=== PATIENT | female | born 2000 | race Caucasian/White ===

== ENCOUNTER 2025-08-07 01:01 | Emergency (ER) | payer BC, OTHER ==
[~2025-08-07] VITALS: Ht 154.9 cm; Wt 74.3 kg
[2025-08-07 01:06] VITALS: BP 97/70; PULSE 78; RESP 20; TEMP 97; O2SAT 97
[2025-08-07] MEDS ORDERED: KETOROLAC TROMETH 30 MG/ML 1ML VIAL IM ONE (01:30)
--- NOTE | 2025-08-07 01:34 | ED.PDOC ---
History of Present Illness HPI Comments This is a 24-year-old female with eczema who presented to the ER for the evaluation of hand pain status post mechanical fall. Patient was running in her backyard late night earlier today when she experienced a mechanical fall and she tripped, landed on her hands, her hands were outstretched and since then she has been complaining of right and pain especially on the base of the right thumb. She denies hitting her head or losing consciousness. She denies any wound open or closed. Active and passive range of motion are intact. Patient seen and examined in ER. Slight swelling and tenderness at the thumb on the right side, no redness, no open wounds, range of motion is intact, intact g rip strength. Chief Complaint: Upper Extremity Time Seen by MD: 01:13 Allergies: Coded Allergies: No Known Drug Allergy (Verified Allergy, Unknown, 08/07/25) Information Source: Patient Mode of Arrival: Ambulatory Past Medical History PAST MEDICAL HISTORY: Denies Past Medical History (Other): Eczema Surgical History: Denies all surgeries WEED CONTROLLER History: No Pertinent WEED CONTROLLER History Constitutional: denies: chills, diaphoresis, fatigue, fever, malaise, sweats, weakness, others EENTM: denies: blurred vision, double vision, ear bleeding, ear discharge, ear drainage, ear pain, ear ringing, eye pain, eye redness, hearing loss, mouth pain , mouth swelling, nasal discharge, nose bleeding, nose congestion, nose pain, photophobia, tearing, throat pain, throat swelling, voice changes, others Respiratory: denies: cough, hemoptysis, orthopnea, SOB at rest, shortness of breath, SOB with excertion, stridor, wheezing, others Cardiovascular: denies: chest pain, dizzy spells, diaphoresis, Dyspnea on exertion, edema, irregular heart beat, left arm pain, lightheadedness, palpitations, PND, syncope, others Gastrointestinal: denies: abdomen distended, abdominal pain, blood streaked bowels, constipated, diarrhea, dysphagia, difficulty swallowing, hematemesis, melena, nausea, poor appetite, poor fluid intake, rectal bleeding, rectal pain, vomiting, others Genitourinary: denies: abnormal vagina bleeding, burning, dyspareunia, dysuria, flank pain, frequency, hematuria, incontinence, pain, , vagina discharge, urgency, others Neurological: denies: dizziness, fainting, headache, left sided numbness, left sided weakness, numbness, paresthesia, pre-existing deficit, right sided numbness, right sided weakness, seizure, speech problems, tingling, tremors, weakness, others Musculoskeletal: reports: others (Right hand pain) Integumetry: denies: bruises, change in color, change in hair/nails, dryness, laceration, lesions, lumps, rash, wounds, others Allergic/Immunocompromised: denies: Difficulty Healing, Frequent Infections, Hives, Itching, others Hematologic/Lymphatic: denies: anemia, blood clots, easy bleeding, easy bruising, swollen glands, others Endocrine: denies: excessive hunger, excessive sweating, excessive thirst, excessive urination, flushing, intolerance to cold, intolerance to heat, unexplained weight gain, unexplained weight loss, others Psychiatric: denies: anxiety, bipolar disorder, depression, hopeless, panic disorder, schizophrenia, sleepless, suicidal, others Physical Exam General Appearance: No Apparent Distress, Normal HEENT: Normal ENT Inspection, Pharynx Normal, TMs Normal Neck: Full Range of Motion, Non-Tender, Normal, Normal Inspection Respiratory: Chest Non-Tender, Lungs Clear, No Accessory Muscle Use, No Respiratory Distress, Normal Breath Sounds Cardiovascular: No Edema, No JVD, No Murmur, No Gallop, Normal Peripheral Pulses, Regular Rate/Rhythm Breast Exam: Deferred Gastrointestinal: No Organomegaly, Non Tender, No Pulsatile Mass, Normal Bowel Sounds, Soft Genitalia: Deferred Pelvic: Deferred Rectal: Deferred Extremities: No calf tenderness, Normal capillary refill, Normal inspection, Normal range of motion, Non-tender, No pedal edema, Tender, Other (Base of the right thumb has tenderness) Musculoskeletal : Apperance: Normal Neurologic: Alert, digital account coordinator II-XII nml as Tested, No Motor Deficits, Normal Affect, Normal Mood, No Sensory Deficits Cerebellar Function: Normal Reflexes: Normal Skin: Dry, Normal Color, Warm Lymphatic: No Adenopathy Was a procedure done? Was a procedure done?: No Differential Dx Considerations may include: Scaphoid fracture/foosh injury/cellulitis/lunate fracture X-Ray, Labs, Meds, VS Vital Signs Date Time Temp Pulse Resp B/P (MAP) Pulse Ox O2 Delivery O2 Flow Rate FiO2 9/25/25 01:06 97.0 78 20 97/70 97 97.0 Time of 1ST Reevaluation: 02:00 Reevaluation 1ST: Resolved Patient Education/Counseling: Diagnosis, Treatment, Need For Follow Up Family Education/Counseling: No Family Present SEPSIS Sepsis Screen Date sepsis recognized/suspect: Aug 07, 2025 Time Sepsis recognized/suspect: 0108 Recent Procedure: No On Antibiotic Therapy: No Respiratory Rate >20: No Heart Rate >90: No Temp<36 C (96.8 F) or >38.3 C: No SBP <90 or MAP <65 mmHG: No New Acute Mental Status Change: No Is the patient on CPAP, BIPAP,: No Physician Orders R Wrist 3+ View Xray (08/07/25 01:26) Ice/Cold Pack (08/07/25 ) R Hand 3 View Xray (08/07/25 01:38) Vital Signs Date Time Temp Pulse Resp B/P (MAP) Pulse Ox O2 Delivery O2 Flow Rate FiO2 08/07/25 01:06 97.0 78 20 97/70 97 97.0 Departure 1 Departure Time of Disposition: 02:29 Impression: Primary Impression: Accident due to mechanical fall without injury Additional Impression: Hand trauma Disposition: 01 HOME / SELF CARE / HOMELESS Condition: Stable Referrals Follow up with primary care physician Follow up with discharge clinic Additional Instructions: Right hand and wrist x-ray : There is no evidence of acute fracture or dislocation. Soft tissues are unremarkable. Ibuprofen [id number] p.r.n. Rest and ice packs Return to the ER in case the pain worses or limited range of motion Discharged With: Self Critical Care Note Critical Care Time?: No Stability Stability form required: GUADALUPE Griffin RESIDENT Aug 07, 2025 01:34
--- NOTE | 2025-08-07 02:11 | DVH ---
CLINICAL INDICATION: FALL PT COMPLAIN OF HAND PAIN TECHNIQUE: XY R HAND 3 VIEW XRAY, XY R WRIST 3+ VIEW XRAY Comparison: XY R WRIST 3+ VIEW XRAY on DOS: 08/07/25 FINDINGS/IMPRESSION: : There is no evidence of acute fracture or dislocation. Soft tissues are unremarkable.
== END 2025-08-07 02:33 | disposition left against medical advice (07) ==
LOC: ER 01:01
DX: S69.91XA Unspecified injury of right wrist, hand and finger(s), initial encounter (principal); L30.9 Dermatitis, unspecified; W01.0XXA Fall on same level from slipping, tripping and stumbling without subsequent striking against object, initial encounter; Y93.89 Activity, other specified; Y92.89 Other specified places as the place of occurrence of the external cause; Y99.8 Other external cause status
CPT/HCPCS: 73110; 73130